=== PATIENT | male | born 1940 | race Caucasian/White ===

== ENCOUNTER → 2024-07-27 14:19 | Outpatient (REF) | payer MEDICARE, BC, SELFPAY | LOC: HWRAD 14:19 | PROVIDERS: ATTENDING PHYSICIAN Specialist; FAMILY PHYSICIAN Family Medicine | DX: R31.0 Gross hematuria (principal) | CPT/HCPCS: 76775 ==

== ENCOUNTER → 2024-09-25 09:02 | Outpatient (REF) | payer MEDICARE, BC, SELFPAY | LOC: DHSLP 09:02 | PROVIDERS: ATTENDING PHYSICIAN Internal Medicine Cardiovascular Disease; FAMILY PHYSICIAN Family Medicine | DX: G47.33 Obstructive sleep apnea (adult) (pediatric) (principal) | CPT/HCPCS: 95800 ==

== ENCOUNTER → 2025-05-13 07:33 | Outpatient (REF) | payer MEDICARE, BC, SELFPAY | LOC: MRI 07:33 | PROVIDERS: ATTENDING PHYSICIAN Otolaryngology; FAMILY PHYSICIAN Family Medicine | DX: R42 Dizziness and giddiness (principal) | CPT/HCPCS: 70551 ==

== ENCOUNTER → 2025-08-25 06:45 | Outpatient (REF) | payer MEDICARE, BC, SELFPAY | LOC: MRI 06:45 | PROVIDERS: ATTENDING PHYSICIAN Specialist; FAMILY PHYSICIAN Family Medicine | DX: M54.16 Radiculopathy, lumbar region (principal) | CPT/HCPCS: 72148 ==

== ENCOUNTER → 2025-09-03 20:21 | Outpatient (REF) | payer MEDICARE, BC, SELFPAY | LOC: PAVMRI 20:21 | PROVIDERS: ATTENDING PHYSICIAN Physician Assistant Surgical; FAMILY PHYSICIAN Family Medicine | DX: M25.511 Pain in right shoulder (principal) | CPT/HCPCS: 73221 ==